=== PATIENT | male | born 1930 | race Caucasian/White ===

== ENCOUNTER 2017-01-23 09:33 | Emergency (ER) | payer MEDICARE ==
[~2017-01-23] VITALS: Ht 162.6 cm; Wt 90.0 kg
[~2017-01-23 09:33] MED LIST: ASPI81TA82 PO; HYDR-2768 PO; LOSA50TA PO; MAGN400T20 PO; OMPR20CCR PO; POTA595T5 PO; PROS5TAB2 PO; TERA2CAP3 PO
[2017-01-23 09:50] VITALS: BP 172/80; PULSE 78; RESP 14; TEMP 98.4; O2SAT 95
[2017-01-23] MEDS ORDERED: TIMO0.5S30 EACH EYE (10:02)
[2017-01-23] MEDS ORDERED: ATOR40TA16 PO (10:02)
[2017-01-23] MEDS ORDERED: FINA5TAB2 PO (10:02)
[2017-01-23] MEDS ORDERED: OMEP40CA2 PO (10:02)
[2017-01-23] MEDS ORDERED: ASPI-516 CHEW (10:02)
[2017-01-23] MEDS ORDERED: VITA10002 PO (10:02)
[2017-01-23] MEDS ORDERED: VITA1000 PO (10:02)
[2017-01-23] MEDS ORDERED: TERA2CAP3 PO (10:02)
[2017-01-23] MEDS ORDERED: ISOS30TA3 PO (10:02)
[2017-01-23] MEDS ORDERED: OCUVTAB4 PO (10:02)
[2017-01-23] MEDS ORDERED: ALEV220T14 PO (10:02)
[2017-01-23] MEDS ORDERED: HYDR25TA5 PO (10:02)
[2017-01-23] MEDS ORDERED: MULTTAB67 PO (10:02)
--- NOTE | 2017-01-23 10:12 | PD ---
HPI Chief Complaint: Back/ Neck Pain or Injury Time Seen by Provider: 09:55 Travel History International Travel<30 days: No Contact w/Intl Traveler<30days: No Traveled to known affect area: No History of Present Illness HPI 86-year-old male presents with 2 month history of low back pain that is gotten worse over the past couple of days after lifting heavy items over the holidays. He states he went to Dr. Burnett and they did an x-ray of his back and adjusted his nerve stimulator and wrote for him to take tramadol. He states he was afraid to fill the tramadol given the side effects listed on the medication. He denies any urinary symptoms, fever, weakness, incontinence, trauma, abdominal pain or other concurrent complaints. Quality pain is sharp. Severity is severe. Pain is worse with movement. He states he is here for pain control. 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) Cardiovascular Problems: No High Cholesterol: Yes Chemotherapy: No Chest Pain: No Congestive Heart Failure: No COPD: No Diabetes: No Diminished Hearing: No Endocrine: No Gastrointestinal Disorders: Yes (REFLUX) Genitourinary: No Hepatitis: No Hiatal Hernia: Yes Hypertension: Yes Immune Disorder: No Musculoskeletal: Yes (ARTHRITIS) Neurologic: No Psychiatric: No Reproductive: No Respiratory: No Radiation Therapy: No Sleep Apnea: Yes (on cpap) Thyroid Disease: No Tetanus Vaccination: < 5 Years Influenza Vaccination: Yes Past Surgical History Abdominal Surgery: Yes (HERNIA) AICD: No Body Medical Devices: SPINAL CORD STIMULATOR LEFT SIDE Cholecystectomy: Yes Genitourinary Surgery: Yes (TURP., BLADDER STONES,VASCECTOMY) Joint Replacement: No Pacemaker: No Other Surgery: Yes (GALBLADDER REMOVED, RUPTURED UMBILUCUS REPAIR, STIMULATOR IN BACK) Social History Alcohol Use: Yes (rare) Tobacco Use: No Substance Use: No Allergies-Medications (Allergen,Severity, Reaction): Coded Allergies: No Known Allergies (Unverified Adverse Reaction, Unknown, 01/23/17) Reported Meds & Prescriptions Reported Meds & Active Scripts Active Reported Timolol Opth Drops 0.5 % Soln 1 Drop EACH EYE DAILY Multiple Vitamin 1 Tab 1 Tab PO DAILY Omeprazole 40 Mg Cap 40 Mg PO DAILY Isosorbide Mononitrate ER (Isosorbide Mononitrate) 30 Mg Eric 30 Mg PO DAILY Vitamin D-1000 (Cholecalciferol) 1,000 Unit Tab 2,000 Units PO DAILY Vitamin B-12 (Cyanocobalamin) 1,000 Mcg Tab 1,000 Mcg PO DAILY Terazosin (Terazosin HCl) 2 Mg Cap 2 Mg PO HS Preservision Areds (Multiple Vitamins W/ Minerals) 1 Tab 1 Tab PO DAILY Hydrochlorothiazide 25 Mg Tab 25 Mg PO DAILY Finasteride 5 Mg Tab 5 Mg PO DAILY Do not crush. Atorvastatin (Atorvastatin Calcium) 40 Mg Tab 40 Mg PO HS Aspirin 81 Mg Chew 81 Mg CHEW DAILY Aleve Arthritis (Naproxen Sodium) 220 Mg Tab 220 Mg PO BID Review of Systems Except as stated in HPI: all other systems reviewed are Neg Physical Exam Narrative GENERAL: Well-nourished, well-developed patient. SKIN: Warm and dry. HEAD: Normocephalic and atraumatic. EYES: No injection or drainage. ENT: No nasal drainage noted. NECK: Supple, trachea midline. CARDIOVASCULAR: Regular rate and rhythm RESPIRATORY: Breath sounds equal bilaterally at apices. No accessory muscle use. GASTROINTESTINAL: Abdomen soft, non-tender, nondistended. BACK: Nontender without obvious deformity on my exam in midline, no CVA tenderness. NEUROLOGICAL: Awake and alert. Motor and sensory grossly within normal limits. Normal speech. Data Data Last Documented VS Vital Signs Date Time Temp Pulse Resp B/P (MAP) Pulse Ox O2 Delivery O2 Flow Rate FiO2 01/23/17 11:50 16 01/23/17 11:16 01/23/17 09:50 98.4 78 95 Orders Orders Oxycodone-Acetamin 5-325 Mg (Percocet (01/23/17 10:15) Ed Discharge Order (01/23/17 11:05) [facility] Medical Decision Making Medical Screen Exam Complete: Yes Emergency Medical Condition: Yes Medical Record Reviewed: Yes (past history confirmed) Differential Diagnosis Osteoarthritis, disc disease, strain Narrative Course Lengthy discussion with patient and family and patient agrees he does not need any testing here and is seeking pain control. He is wanting something that doesn't have a lot of side effects and I told him narcotics also have side effects. He agrees to a one-time dose of Percocet here as he has a ride today but he usually has to drive and then he will follow with his primary care physician and orthopedic physician. Given return instructions Diagnosis Primary Impression: Back pain Qualified Codes: M54.5 - Low back pain Patient Instructions: General Instructions Additional Instructions: return as needed, follow with primary tommorrow, tylenol and motrin with food as needed Med/Other Pt SpecificInfo: No Change to Meds Disposition: 01 DISCHARGE HOME Condition: Stable Azalia Mina MD Jan 23, 2017 10:12
[2017-01-23] MEDS ORDERED: oxyCODONE/ACETAMINOPHEN 5 MG/325 MG TAB PO ONE (10:15)
[2017-01-23 11:50] VITALS: RESP 16
== END 2017-01-23 11:45 | disposition home or self-care (01) ==
LOC: NEPE 09:33
DX: M54.5 Low back pain (principal); M46.90 Unspecified inflammatory spondylopathy, site unspecified; Z79.82 Long term (current) use of aspirin
CPT/HCPCS: 99282